=== PATIENT | female | born 1935 | race Caucasian/White ===

== ENCOUNTER 2017-09-05 09:10 | Emergency (ER) | payer MEDICARE, OTHER ==
[2017-09-05 09:59] LABS: #Basophils 0.1 thou/uL (0.0-0.2); #Eosinphils 0.1 thou/uL (0.0-0.7); #Lymphocytes 1.3 thou/uL (1.20-3.40); #Monocytes 0.4 thou/uL (0.11-0.59); #Neutrophils 2.9 thou/uL (1.40-6.50); %Basophils 1.1 % (0.0-1.0); %Eosinophils 1.2 % (0.0-10.0); %Lymphocytes 27.3 % (21.0-51.0); %Monocytes 8.2 % (0.0-10.0); %Neutrophils 62.3 % (42.0-75.0); Hemoglobin 12.8 g/dL (12.0-16.0); Mean Corpuscular HGB CONC 33.1 g/dL (32.0-36.0); Mean Corpuscular Hemoglobin 31.2 pg (27.0-31.0); Mean Corpuscular Volume 94.4 fl (81.0-99.0); Mean Platelet Volume 5.9 fL (7.4-10.4); Platelet Count 302 thou/uL (130-400); RBC Distribution Width 12.5 % (11.5-14.5); Red Blood Cell (RBC) Count 4.08 mill/uL (4.20-5.40); White Blood Cell (WBC) Count 4.7 thou/uL (4.8-10.8)
[2017-09-05 10:05] LABS: PTT 26.5 SEC (22.9-36.1); Prothrombin Time 13.7 SEC (12.0-14.7)
[2017-09-05] MEDS ORDERED: Meclizine HCl 25 MG TAB ONE (10:22)
--- NOTE | 2017-09-05 10:23 | RAD ---
SINGLE VIEW OF THE CHEST: COMPARISON: None. HISTORY: Dizziness, abdominal pain, nausea, and vomiting. FINDINGS: Single view of the chest shows a normal sized cardiomediastinal silhouette. There is no evidence of c onsolidation, mass, or pleural effusion. The bones are unremarkable. IMPRESSION: No evidence of acute cardiopulmonary disease. POS: [facility]
[2017-09-05 10:24] LABS: ALT (SGPT) 14 U/L (8-55); AST (SGOT) 16 U/L (5-34); Albumin 4.1 g/dL (3.4-4.8); Alkaline Phosphatase 57 U/L (40-150); Anion Gap 14 mmol/L (10-20); BUN (Urea Nitrogen) 20 mg/dL (9.8-20.1); Bilirubin, Total 0.6 mg/dL (0.2-1.2); CK (CPK) 59 U/L (29-168); Calc. Creatinine Clearance 0 mL/min (70-130); Calcium 9.4 mg/dL (7.8-10.44); Carbon Dioxide 24 mmol/L (23-31); Chloride 102 mmol/L (98-107); Estimated GFR-MDRD 47; Globulin 2.8 g/dL (2.4-3.5); Glucose 148 mg/dL (83-110); Lipase 23 U/L (8-78); Magnesium 2.5 mg/dL (1.6-2.6); Potassium 3.8 mmol/L (3.5-5.1); Protein, Total 6.9 g/dL (6.0-8.3); Sodium 136 mmol/L (136-145)
[2017-09-05 10:27] LABS: CKMB 2.4 ng/mL (0-6.6); Troponin I Less than 0.010 ng/mL (< 0.028)
--- NOTE | 2017-09-05 10:27 | CT ---
CT BRAIN WITHOUT CONTRAST: HISTORY: Dizziness. COMPARISON: None. FINDINGS: There is moderately advanced microvascular ischemic change of the deep white matter centrum semiovale . Mild atrophy. No acute infarct or hemorrhage. No midline shift or mass effect. Calvarium is int act. Paranasal sinuses and mastoid air cells are clear. IMPRESSION: Chronic changes. No acute intracranial abnormality. POS: [facility]
[2017-09-05] MEDS ORDERED: cloNIDine 0.1 MG TAB ONE (11:17)
[2017-09-05 11:26] LABS: Bilirubin Negative (Negative); Blood, Urine Negative (Negative); Glucose, Urine (Dipstick) Negative (Negative); Leukocyte Negative (Negative); Nitrite Negative (Negative); Protein, Urine (Dipstick) Negative (Neg-Trace); Urobilinogen 0.2 mg/dL (0.2-1.0); pH, Urine 7.5 (5.0-9.0)
[2017-09-05 11:31] LABS: Clarity CLEAR (Clear)
--- NOTE | 2017-11-09 16:11 | EKG ---
Test Reason : Blood Pressure : / mmHG Vent. Rate : 077 BPM Atrial Rate : 077 BPM P-R Int : 146 ms QRS Dur : 078 ms QT Int : 378 ms P-R-T Axes : 050 024 054 degrees QTc Int : 427 ms Normal sinus rhythm with sinus arrhythmia Possible Left atrial enlargement Septal infarct , age undetermined Abnormal ECG Confirmed by PETR GAMBINO, ZULEMA ([id number]), production editor ELSIE LIMA ([id number] on 11/09/2017 4:11:17 PM Referred By: Confirmed By:ZULEMA HUMPHREYS MD
== END 2017-09-05 12:12 | disposition home or self-care (01) ==
LOC: ERS 09:10
DX: I10 Essential (primary) hypertension (principal); R42 Dizziness and giddiness; Z79.899 Other long term (current) drug therapy
CPT/HCPCS: 70450; 71045; 80053; 81003; 82550; 82553; 83690; 83735; 83880; 84484; 85025; 85610; 85730; 87086; 93005

== ENCOUNTER 2019-03-10 11:07 | Outpatient (CLI) | payer MEDICARE, OTHER ==
--- NOTE | 2019-03-10 11:41 | RAD ---
EXAM: 3 views of the lumbosacral spine HISTORY: Low back pain COMPARISON: MRI lumbar spine 08/09/2015 FINDINGS: 3 views of the lumbosacral spine shows moderate scoliotic curvature of the spine. There is compression deformity of the L1 vertebral body with approximately 50% height loss. Severe degenerative changes are seen throughout the lumbar spine with osteophytes seen along the concave asp ect of the curvature. The sacroiliac joints are unremarkable. IMPRESSION: Degenerative changes of the lumbar spine as above with compression fracture of L1.
== END 2019-03-10 11:08 | disposition home or self-care (01) ==
LOC: BICRAD 11:07
PROVIDERS: ATTEND Family Medicine
DX: S32.019D Unspecified fracture of first lumbar vertebra, subsequent encounter for fracture with routine healing (principal); M47.816 Spondylosis without myelopathy or radiculopathy, lumbar region
CPT/HCPCS: 72100

== ENCOUNTER 2019-03-11 09:37 | Outpatient (CLI) | payer MEDICARE, OTHER ==
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
== END 2019-03-11 09:38 | disposition home or self-care (01) ==
LOC: MRI 09:37
PROVIDERS: ATTEND Specialist
DX: S32.000A Wedge compression fracture of unspecified lumbar vertebra, initial encounter for closed fracture (principal); M54.5 Low back pain; S22.081A Stable burst fracture of T11-T12 vertebra, initial encounter for closed fracture; M47.26 Other spondylosis with radiculopathy, lumbar region
CPT/HCPCS: 72148

== ENCOUNTER 2019-06-02 14:27 | Outpatient (CLI) | payer MEDICARE, OTHER ==
--- NOTE | 2019-06-02 16:39 | MRI ---
EXAM: MRI Thoracic Spine WO Con PROVIDED CLINICAL HISTORY: Thoracic radiculopathy COMPARISON: Lumbar spine MRI 03/11/2019 FINDINGS: Thoracic alignment appears normal. There are mild remote superior endplate compression deformities involving T1 and T2. Burst fracture of T12 is redemonstrated with degree of retropulsion similar to the prior study. There is moderate associated canal stenosis. Vertebral body heights appear otherwise preserved. The thoracic spinal cord demonstrates normal signal and morphology. Multilevel facet arthritis is noted involving the thoracic spine diffusely. Disc degenerative changes with loss of disc space height and endplate signal changes are seen at multiple levels, most conspicuously at T11-12. At T5-6, there is a right paracentral disc protrusion which effaces the right ventrolateral subarachn oid space. Foraminal narrowing is seen right of midline at this level. There is a small central disc protrusion at T8-9. There are broad-based disc bulges at T10-11 and T11-12. There is conspicuous foraminal narrowing bila terally at T11-12 and T12-L1. No additional significant central canal stenosis. IMPRESSION: 1. Remote compression and burst fractures as described. Associated stable central canal stenosis rela winifred to burst fracture at T12. 2. Multilevel thoracic disc and facet degenerative change with foraminal narrowing as described.
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
== END 2019-06-02 14:28 | disposition home or self-care (01) ==
LOC: BICMRI 14:27
PROVIDERS: ATTEND Specialist
DX: M47.24 Other spondylosis with radiculopathy, thoracic region (principal); S32.010A Wedge compression fracture of first lumbar vertebra, initial encounter for closed fracture; M48.061 Spinal stenosis, lumbar region without neurogenic claudication; M48.07 Spinal stenosis, lumbosacral region; M48.04 Spinal stenosis, thoracic region
CPT/HCPCS: 72146; 72148

== ENCOUNTER 2019-08-24 12:34 | Outpatient (CLI) | payer MEDICARE, OTHER ==
--- NOTE | 2019-08-24 14:49 | CT ---
CT ABDOMEN AND PELVIS WITHOUT AND WITH CONTRAST: Date: 08/24/2019 COMPARISON: None. HISTORY: Lower abdominal pain and bloating. COMPARISON: CT 08/17/2019. TECHNIQUE: Multiple contiguous axial images were obtained in a CT of the abdomen and pelvis without and with IV contrast. PO contrast was administered. Coronal reformats were performed. FINDINGS: There is scattered diverticula in the colon. A fluid collection is again seen adjacent to the sigmoid colon. This has slightly decreased in size, now measuring 2.1 cm in greatest dimension. No free air is seen in the abdomen or pelvis. The liver, gallbladder, kidneys, adrenal glands, spleen, and pancreas are unremarkable. The small bowel is normal in caliber. No abdominal or pelvic lymphadenopathy seen. Atherosclerotic ca lcifications are seen in the aorta. Degenerative changes are seen in the spine. Increased interstitial lung markings are seen in the lung bases. IMPRESSION: Diverticulosis with fluid collection adjacent to the sigmoid colon. This could represent complicated acute diverticulitis with a small abscess. POS: [facility]
== END 2019-08-24 12:35 | disposition home or self-care (01) ==
LOC: BICCT 12:34
PROVIDERS: ATTEND Internal Medicine
DX: K57.20 Diverticulitis of large intestine with perforation and abscess without bleeding (principal); K57.30 Diverticulosis of large intestine without perforation or abscess without bleeding
CPT/HCPCS: 74178

== ENCOUNTER 2019-09-25 10:37 | Outpatient (CLI) | payer MEDICARE, OTHER ==
[~2019-09-25 10:37] MED LIST: Iopamidol-370 76% 500 ML 1 ML ONE
--- NOTE | 2019-09-25 14:49 | CT ---
CT OF THE ABDOMEN AND PELVIS WITH IV CONTRAST: INDICATION: History of diverticulitis. COMPARISON: Prior CT of the abdomen and pelvis dated 08/24/2019. FINDINGS: There is emphysematous change involving both lower lobes. No focal hepatic lesion is evident. The v isualized aspects of the gallbladder, pancreas, and adrenal glands appear within normal limits. The kidneys appear within normal limits. The spleen is normal-appearing. There are moderate calcifications involving the abdominopelvic vasculature. No enlarged lymph nodes are evident. There is a prominent amount of retained stool within the colon. The bladder is partially decompresse d. There are mild peripelvic varicosities again demonstrated within the lower anterior hemipelvis. There are scattered diverticula. No overt drainable fluid collection is evident. The previously see n pericolonic fluid collection seen adjacent to the fluid collection seen adjacent to the sigmoid col on is no longer demonstrated. Small bowel is of normal caliber. There is dextroscoliosis of the lumbar spine. There is prominent compression abnormality of L1 and c ompression abnormality of t12 which is stable. IMPRESSION: 1. Resolution of the sigmoid diverticulitis. The pericolonic abscess seen along the inferior margin of the sigmoid colon on the prior examination has resolved. There is a prominent amount of retained stool within the colon. 2. Bibasilar emphysema. 3. Chronic T12 vertebral body compression abnormality. POS: [facility]
== END 2019-09-25 10:38 | disposition home or self-care (01) ==
LOC: BICCT 10:37
PROVIDERS: ATTEND Internal Medicine
DX: K57.21 Diverticulitis of large intestine with perforation and abscess with bleeding (principal); R19.5 Other fecal abnormalities; J43.9 Emphysema, unspecified; G95.20 Unspecified cord compression
CPT/HCPCS: 74177; 82565; Q9967

== ENCOUNTER 2020-01-26 13:06 | Outpatient (CLI) | payer MEDICARE, OTHER ==
--- NOTE | 2020-01-26 14:31 | MRI ---
MRI thoracic spine noncontrast: 01/26/2020 HISTORY: 84-year-old female with ICD-10: "M 54.14 radiculopathy, thoracic" Mid back pain. Episodes of previous trauma. COMPARISON: MRI of 06/02/2019 FINDINGS: There is high-grade loss of height of C4, C5, and C6 vertebral bodies without bone marrow edema, as p artially imaged on the sagittal sewing pattern layout technician sequence. The evaluation is incomplete. Thoracic spinal cord is normal in size and signal. No syrinx. Multilevel moderate bilateral facet DJD throughout entire thoracic spine. Multilevel degenerative disc disease involving all levels, mild and moderate. This is greatest at T10 -11 and T11-12 where the disc space narrowing is severe, with endplate irregularities. Ligamentum flavum thickening indents the dorsal aspect of the thecal sac at multiple levels throughou t the thoracic spine. Small disc protrusions and/or disc-osteophyte complexes encroach upon the anterior aspect of the thecal sac at almost every level. The largest is a right-paracentral and central small disc-osteophyte complex. The adjacent right vent ral surface of the spinal cord is slightly flattened, but there is no central spinal canal stenosis at this level. Another prominent 1 is small central and bilateral paracentral disc protrusion or at T 9-10. At T11-12, there is a broad-based disc-osteophyte complex that indents the ventral aspect of the thec al sac. It extends laterally as a broad-based disc herniation that causes severe right neural foraminal stenosis, impinging on the exiting right T11 nerve root. Mild central spinal canal stenosis at this level. There is also severe right T12-L1 neural foraminal stenosis due to a combination of severe right facet DJD and the lateral component of right-sided disc herniation. This consists of wale ateral paracentral disc herniation-osteophyte complexes, associated with chronic bony retropulsion of superior endplate of L1, with severe central, greater than 95% loss of height and lesser degree of anterior and posterior loss of height. No associated bone marrow edema. Mild lateral curvature of lower thoracic and upper lumbar spine. IMPRESSION: 1.) Moderate thoracic spondylosis with degenerative disc disease and facet osteoarthrosis involving a ll levels. 2) severe right neural foraminal stenosis at T11-12 and T12-L1. 3) old burst fracture of L1. 4) no major interval change overall. 5) several old compression fractures of the mid and lower cervical spine, incompletely imaged
--- NOTE | 2020-01-26 15:04 | MRI ---
MRI lumbar spine noncontrast HISTORY: Low back pain. Fall one month ago. COMPARISON: 06/02/2019. FINDINGS: The conus medullaris has a normal appearance. Severe rightward convex rotatory scoliotic cu rvature is again demonstrated. Chronic prominent compression of the T12 vertebral body with near complete loss of height and retropu lsion of the superior endplate is similar in appearance to the previous exam. No residual edema evident. There is disc space narrowing and desiccation of the disc at each level. T12/L1: Posterior disc bulge and prominent circumferential degenerative changes. Mild stenosis of the central canal. Severe right and mild left foraminal stenoses, slightly progressed since the prior exam. L1-2: Minimal degenerative spondylolisthesis. Posterior disc bulge and prominent posterior facet hype rtrophy. Moderate stenosis of the central canal. Severe stenosis of the right neural foramen is stable. L2-3: Grade 1 degenerative spondylolisthesis. Mild posterior disc bulge. Prominent posterior degenera tive changes. Severe stenosis of the central canal. Moderate right foraminal stenosis. Findings are stable. L3-4: There is 0.8 cm, grade 1-2 spondylolisthesis and complete loss of joint space height. Posterior disc bulge and osteophytosis. Prominent posterior degenerative changes. Very severe stenosis of the central canal and left neural foramen. Moderate stenosis of the right neural foramen. L4-5: Minimal degenerative retrolisthesis. Posterior disc bulge and circumferential degenerative kapadia ges. Severe stenosis of the central canal is similar in appearance to the prior study. Severe bilateral foraminal stenosis. L5-S1: Minimal disc bulge. Thecal sac is patent. Prominent osteophytosis of the facets. Severe right and moderate left foraminal stenoses, similar in appearance to the prior study. IMPRESSION : Chronic, stable compression deformity of T12 with retropulsion of the superior endplate. Severe, multilevel degenerative changes throughout the lumbar spine, with multilevel severe bilateral foraminal stenoses. Central canal stenosis most severe at the L3-4 level. Disease has progressed slightly at the T12-L1 level.
== END 2020-01-26 13:07 | disposition home or self-care (01) ==
LOC: BICMRI 13:06
PROVIDERS: ATTEND Orthopaedic Surgery Orthopaedic Surgery of the Spine
DX: M47.26 Other spondylosis with radiculopathy, lumbar region (principal); M47.24 Other spondylosis with radiculopathy, thoracic region; M51.14 Intervertebral disc disorders with radiculopathy, thoracic region; M54.5 Low back pain; M48.061 Spinal stenosis, lumbar region without neurogenic claudication; M47.814 Spondylosis without myelopathy or radiculopathy, thoracic region; M48.04 Spinal stenosis, thoracic region; M48.07 Spinal stenosis, lumbosacral region; M48.05 Spinal stenosis, thoracolumbar region; M43.9 Deforming dorsopathy, unspecified; Z87.81 Personal history of (healed) traumatic fracture
CPT/HCPCS: 72146; 72148

== ENCOUNTER 2021-10-02 17:42 | Emergency (ER) | payer MEDICARE, OTHER ==
[2021-10-02 18:53] LABS: #Basophils 0.1 thou/uL (0.0-0.2); #Eosinphils 0.2 thou/uL (0.0-0.7); #Lymphocytes 1.3 thou/uL (1.20-3.40); #Monocytes 0.4 thou/uL (0.11-0.59); #Neutrophils 4.9 thou/uL (1.40-6.50); %Basophils 0.8 % (0.0-1.0); %Eosinophils 2.5 % (0.0-10.0); %Lymphocytes 18.7 % (21.0-51.0); %Monocytes 5.5 % (0.0-10.0); %Neutrophils 72.4 % (42.0-75.0); Hemoglobin 11.3 g/dL (12.0-16.0); Mean Corpuscular HGB CONC 32.2 g/dL (32.0-36.0); Mean Corpuscular Hemoglobin 32.1 pg (27.0-31.0); Mean Corpuscular Volume 99.6 fL (78.0-98.0); Mean Platelet Volume 5.5 fL (7.4-10.4); Platelet Count 360 thou/uL (130-400); RBC Distribution Width 13.3 % (11.5-14.5); Red Blood Cell (RBC) Count 3.53 mill/uL (4.20-5.40); White Blood Cell (WBC) Count 6.8 thou/uL (4.8-10.8)
[2021-10-02 19:09] LABS: ALT (SGPT) 12 U/L (8-55); AST (SGOT) 16 U/L (5-34); Albumin 4.1 g/dL (3.4-4.8); Alkaline Phosphatase 171 U/L (40-110); Anion Gap 15 mmol/L (10-20); BUN (Urea Nitrogen) 26 mg/dL (9.8-20.1); Bilirubin, Total 0.3 mg/dL (0.2-1.2); Calc. Creatinine Clearance 0 mL/min (70-130); Calcium 9.4 mg/dL (7.8-10.44); Carbon Dioxide 24 mmol/L (23-31); Chloride 104 mmol/L (98-107); Globulin 3.1 g/dL (2.4-3.5); Glucose 91 mg/dL (83-110); Potassium 4.6 mmol/L (3.5-5.1); Protein, Total 7.2 g/dL (5.8-8.1); Sodium 138 mmol/L (136-145)
== END 2021-10-02 21:22 | disposition home or self-care (01) ==
LOC: ERS 17:42
DX: R10.32 Left lower quadrant pain (principal); D64.9 Anemia, unspecified; E86.0 Dehydration; I10 Essential (primary) hypertension; Z79.899 Other long term (current) drug therapy; Z87.19 Personal history of other diseases of the digestive system
CPT/HCPCS: 36415; 74177; 80053; 83605; 85025